=== PATIENT | male | born 1985 | race Two or more races ===

== ENCOUNTER 2025-07-17 12:46 | Inpatient (IN) | payer MEDICAID, OTHER ==
[~2025-07-17] VITALS: Ht 180.3 cm; Wt 95.3 kg
--- NOTE | 2025-07-17 15:40 | ED.PDOC ---
GI ASSESSMENT HPI Comments HPI: Holli 39 y.o male presents to the ED for an evaluation of jaundice to his skin and eyes that he noticed 4 days ago and is associated with dizziness, weakness and abdominal distention. Patient admits to heavy alcohol use for the past 7 days consisted of hard liquor, states he wants to quit and last drink was about one week ago. Patient denies any abdominal pain, fever, chills, nausea, vomiting or diarrhea. He mentions taking Ibuprofen given hx of back pain. Initial Vitals BP: 131/69 HR: 85 RR: 18 O2: 100% RA Temp: 98.7 F Past Medical History: HTN and chronic back pain Past Surgical History: Social History: Heavy ETOH use and tobacco use. Denies substance use. Allergies: Cephalexin HPI: Poor Historian. REVIEW OF SYSTEMS: CONSTITUTIONAL: Denies acute: fever, diaphoresis, chills, generalized weakness. HEAD: Denies acute: headache, photophobia Eyes: Denies acute: Double vision, vision loss, eye pain, eye discharge. EARS: Denies acute: tinnitus, hearing loss, ear discharge, ear pain, THROAT: Denies acute: sore throat, swelling, difficulty swallowing , pain with swallowing, change in voice. NECK: Denies acute: neck pain, neck swelling, stiff neck. HEART: Denies acute : chest pain, palpitations, LUNGS: Denies acute: SOB, wheezing, cough, hemoptysis ABDOMEN: Denies acute: Nausea, Vomiting, diarrhea, melena , hematemesis, hematochezia SKIN: Denies acute: rash, redness, lesions, itchiness. EXTREMITIES: Denies acute: calf pain, numbness, tingling, weakness, denies pain in extremity. Denies acute: Low back pain. Neuro: Denies acute: focal neurological deficit, motor or sensory focal neurological deficit, tremors, seizure like activity, confusion, dizziness, change in mental status, loss of bowel or bladder function, cauda equina like symptoms. : Denies acute: dysuria, hematuria, flank pain, increase in urinary frequency. PSYCH: Denies acute: hallucination, suicidal ideation, homicidal ideation. PHYSICAL EXAM: General: ----mi---acute distress, awake and alert. Head: normocephalic, atraumatic. Neck: supple, trachea is midline, no swelling. Throat: Normal phonation. Eyes:, no erythema, no purulent discharge, no proptosis, Heart: regular rate, regular rhythm, no significant murmur appreciated. Lungs: no apparent respiratory distress, Able to speak in full sentences. No wheezing, no rhonchi, no crackles. No stridors Clear to auscultation bilaterally. Abdomen: Mild right upper quadrant tender to palpation, non distended, soft, no guarding, no rebound, + bowel sounds. Neuro: Awake, Alert, oriented to name, self, situation, follows commands GCS=15. Speech is normal. Skin: no petechia, no purpura, no cyanosis, non-pale, not jaundice. Lower extremities: --no - Pitting edema no deformity, no focal swelling, no calf TTP. Makes eye contact. moves all four extremities. Face: no apparent facial droop. Ambulating in the ED independently. ED COURSE: DISCLAIMER: This medical document was created using an electronic medical record system with voice recognition software and computerized dictation system. Although this document has been carefully reviewed, there might still be some phonetic and typographical errors. Occasional wrong-word or "sound-alike" substitutions may have occurred due to the inherent limitations of voice recognition software. These areas are purely typographical due to imperfections of the software programs and do not reflect any compromise in the patient's medical care. Please read the chart carefully and recognize, using context, where these substitutions have occurred. Chief Complaint: Eye Problem Time Seen by MD: 15:30 Reviewed Notes: Allergies Allergies: Coded Allergies: Cephalexin (Verified Allergy, Unknown, 07/17/25) Home Meds Active Scripts Amlodipine Besylate (NORVASC TABLET) 5 Mg Tb, 5 MG PO DAILY for 30 Days, #30 TAB 3 Refills Prov:OCONNELLTRICIA Elizabeth DO 07/21/25 Metoprolol Tartrate (LOPRESSOR TABLET) 50 Mg Tb, 50 MG PO BID for 30 Days, #60 TAB 1 Refill Prov:TRICIA OCONNELL DO 07/21/25 Reported Medications Atorvastatin Calcium (ATORVASTATIN CALCIUM) 80 Mg Tab, 125 MG PO DAILY, TAB 07/19/25 Metoprolol Tartrate (Metoprolol Tartrate) 100 Mg Tab, 10 MG PO BID, TAB 07/19/25 Amlodipine Besylate-Valsartan (Amlodipine Besylate/Valsa 5-160 mg) 1 Tab Tab, 1 TAB PO DAILY for hypertension 07/18/25 Tramadol Hcl (Tramadol Hcl) 50 Mg Tab, 1 TAB PO Q8HPRN PRN for PAIN SCALE 1 THRU 6 07/18/25 Omeprazole (Omeprazole Dr) 20 Mg Cap, 1 CAP PO DAILY 07/18/25 Discontinued Reported Medications Atorvastatin Calcium (ATORVASTATIN CALCIUM) 10 Mg Tab, 1 TAB PO for for cholesterol 07/18/25 Information Source: Patient Mode of Arrival: Ambulatory Past Medical History PAST MEDICAL HISTORY: HTN Past Medical History (Other): chronic back pain Surgical History: Denies all surgeries Family History Family History: Reviewed,noncontributory to illness Social History Smoker: Cigarettes Alcohol: Heavy Lives In: Home Was a procedure done? Was a procedure done?: No GI differential Dx Differential Diagnosis: Bowel Obstruction, Cholangitis, Cholecystitis, Hepatitis, Inflammatory BD, Ischemic Bowel, Pancreatitis, Dehydration, Ischemic Bowel, Esophageal Varicies Other Differential Diagnosis Liver failure , hepatitis, liver cirrhosis, X-Ray, Labs, Meds, VS Vital Signs Date Time Temp Pulse Resp B/P (MAP) Pulse Ox O2 Delivery O2 Flow Rate FiO2 07/17/25 16:39 98.3 86 17 109/66 (80) 99 98.3 07/17/25 12:59 98.7 85 18 131/69 100 98.7 Lab Test 07/17/25 15:36 Range/Units White Blood Count 13.9 H 4.4-10.8 10^3/uL Red Blood Count 3.97 L 4.5-5.90 10^6/uL Hemoglobin 12.6 L 13.5-17.5 g/dL Hematocrit 37.1 L 41.0-53.0 % Mean Corpuscular Volume 93.4 80.0-100.0 fL Mean Corpuscular Hemoglobin 31.8 28.0-32.0 pg Mean Corpuscular Hemoglobin Concent 34.0 32.0-36.0 g/dL Red Cell Distribution Width 17.8 H 11.8-14.3 % Platelet Count 337 140-450 10^3/uL Mean Platelet Volume 7.9 6.9-10.8 fL Neutrophils (%) (Auto) 37.0-80.0 % Lymphocytes (%) (Auto) 10.0-50.0 % Monocytes (%) (Auto) 0.0-12.0 % Basophils (%) (Auto) 0.0-2.0 % Neutrophils # (Auto) 1.6-8.6 10 ^3/uL Lymphocytes # (Auto) 0.4-5.4 10 ^3/uL Monocytes # (Auto) 0-1.3 10 ^3/uL Differential Total Cells Counted 100.0 100 Neutrophils % (Manual) 64 37.0-80.0 Band Neutrophils % (Manual) 5 Lymphocytes % (Manual) 17 10.0-50.0 Monocytes % (Manual) 13 H 0-12 Eosinophils % (Manual) 1 0-7 Basophils % (Manual) 0 0.0-2.0 Metamyelocytes % (manual) 0 Myelocytes % (Manual) 0 Promyelocytes % (Manual) 0 Blast Cells % (Manual) 0 Reactive Lymphocytes 0 Platelet Estimate Adequate Anisocytosis (manual) Slight Target Cells Moderate Tear Drop Cells Stomatocytes Few Prothrombin Time 9.6 9.3-11.8 sec Prothrombin Time INR 0.90 0.9-1.15 Activated Partial Thromboplast Time 26.2 24.5-34.5 SEC Sodium Level 130 L 136-145 mmol/L Potassium Level 3.9 3.5-5.1 mmol/L Chloride Level 97 L 98-107 mmol/L Carbon Dioxide Level 18 L 20-31 mmol/L Anion Gap 15 5-15 Blood Urea Nitrogen 13 9-23 mg/dL Creatinine 1.68 H 0.700-1.30 mg/dL Glomerular Filtration Rate Calc 53 >90 mL/min BUN/Creatinine Ratio 7.7 L 10.0-20.0 Serum Glucose 113 H 74-106 mg/dL Lactic Acid Level 1.6 0.4-2.0 mmol/L Calcium Level 9.8 8.7-10.4 mg/dL Magnesium Level 2.3 1.6-2.6 mg/dL Total Bilirubin 14.5 H 0.2-1.0 mg/dL Aspartate Amino Transferase (AST) 119 H 13-40 U/L Alanine Aminotransferase (ALT) 86 H 7-40 U/L Alkaline Phosphatase 968 H 46-116 U/L Ammonia 55 H 11-32 umol/L Total Protein 7.1 5.7-8.2 g/dL Albumin 3.8 3.2-4.8 g/dL Thyroid Stimulating Hormone (TSH) 0.78 0.55-4.78 uIU/mL Hepatitis A IgM Antibody Negative Hepatitis B Surface Antigen Negative Negative Hepatitis B Core IgM Antibody Negative Negative Hepatitis C Antibody Negative Negative [facility] [id number] [place] [id number] Ph: [phone] DIAGNOSTIC IMAGING Diagnostic Imaging Report : [id number] Signed PATIENT: DRE HUTTON ACCT: [id number] UNIT: [id number] : 1985 LOC: ER ROOM / BED: / AGE / SEX: 39 / M ADM STATUS: REG ER SERVICE [id number] ORDERING PHYSICIAN: RONALDO SOLANO DO PROCEDURE(s): ABPL - CT AB PEL WO CON-NO ORAL OR IV REASON: JAUNDICE ORDER NUMBER(s): [id number], ACCESSION NUMBER(s): [id number] EXAM: CT CT AB PEL WO CON-NO ORAL OR IV INDICATION: JAUNDICE TECHNIQUE: Volumetric multidetector CT images of the abdomen and pelvis were obtained without contrast. All CT scans at this facility use dose modulation, iterative reconstruction, and/or weight based dosing when appropriate to reduce radiation dose to as low as reasonably achievable. COMPARISON: None FINDINGS: [LOWER CHEST]: The partially visualized lung bases are clear without a pleural effusion. The cardiac size is normal without pericardial effusion. [LIVER]: Normal hepatic size without suspicious focal lesion. [GALLBLADDER AND BILIARY TREE]: No cholelithiasis. [SPLEEN]: Unremarkable. [PANCREAS]: Unremarkable. [ADRENAL GLANDS]: Unremarkable [KIDNEYS]: No hydronephrosis. No nephroureterolithiasis. [BLADDER]: Unremarkable for the degree distention. [REPRODUCTIVE ORGANS]: Unremarkable. [BOWEL/MESENTERY]: Stomach is normal. No CT evidence of bowel obstruction. normal appendix. Inflammatory stranding of the along the proximal portion of the sigmoid colon which demonstrates herniation into the left inguinal canal with the associated sigmoid mesentery. No evidence of obstruction however correlate with clinical exam for incarceration. [ASCITES]: Absent [LYMPHADENOPATHY]: No pathologically enlarged lymph nodes by CT size criteria [VASCULATURE]: No aneurysmal dilatation. [ABDOMINAL WALL]: As detailed above, inflammatory stranding with the associated left inguinal sigmoid fat and bowel containing hernia without evidence of obstruction. Small fat containing right inguinal hernia. [MUSCULOSKELETAL]: Malunited left posterior 10th rib fracture. Nonunited left posterior 11th rib fracture. Multifocal degenerative change of the visualized spine. IMPRESSION: 1. Fat and sigmoid colonic containing left inguinal hernia with trace proximal inflammatory stranding. No evidence of obstruction however correlate with clinical exam for incarceration. 2. Small fat containing right inguinal hernia without surrounding inflammatory stranding. 3. Malunited left posterior 10th rib fracture. Nonunited left posterior 11th rib fracture. Time of 1ST Reevaluation: 15:34 Reevaluation 1ST: Unchanged Patient Education/Counseling: Diagnosis, Treatment, Prognosis Family Education/Counseling: No Family Present Comments MDM: patient presented with the above HPI.---jaundice---workup was initiated. patient was found with the above mentioned diagnosis. the following medications were ordered: please refer to order lists of meds and tests obtained by myself Dr. Solano. Patient ED course and VS have been stabilized. Patient has been reassessed in the ED and remained in a stable condition. Pertinent incidental findings were discussed with the patient and/or family. Patient/family voices understanding and is agreeable with plan. Patient has been observed in the ED adequate length of time to insure improvement/stability. Escalation of care considered: Consideration of escalation to observation or admission Patient was ADMITTED to the medicine team for further evaluation and treatment of their presentation. All the reports of any imaging studies that were ordered by myself were reviewed by myself. Departure 1 Departure Time of Disposition: 16:18 Impression: Primary Impression: Jaundice Additional Impressions: Alcohol abuse Hyperammonemia Hyperbilirubinemia Abdominal hernia Disposition: ADMITTED INPATIENT Admit to: Tele Condition: Guarded e-Prescriptions Amlodipine Besylate (NORVASC TABLET) 5 Mg Tb 5 MG PO DAILY for 30 Days, #30 TAB 3 Refills Prov: TRICIA OCONNELL DO 07/21/25 Metoprolol Tartrate (LOPRESSOR TABLET) 50 Mg Tb 50 MG PO BID for 30 Days, #60 TAB 1 Refill Prov: TRICIA OCONNELL DO 07/21/25 Discharged With: Self Critical Care Note Critical Care Time?: Yes (45 min-critical care time only) I personally scribed for RONALDO SOLANO DO ([email or web address]) on 07/17/25 at 15:40. Electronically submitted by Anabelle Saucedo ([facility]). I personally scribed for RONALDO SOLANO DO ([email or web address]) on 07/17/25 at 15:56. Electronically submitted by Sandy Corbin ([place]). RONALDO SOLANO DO Jul 17, 2025 15:40
[2025-07-17 15:47] LABS: Hematocrit 37.1 % (41.0-53.0); Hemoglobin 12.6 g/dL (13.5-17.5); Mean Corpuscular Hemoglobin 31.8 pg (28.0-32.0); Mean Corpuscular Volume 93.4 fL (80.0-100.0)
--- NOTE | 2025-07-17 15:48 | DVH ---
EXAM: CT CT AB PEL WO CON-NO ORAL OR IV INDICATION: JAUNDICE TECHNIQUE: Volumetric multidetector CT images of the abdomen and pelvis were obtained without contras t. All CT scans at this facility use dose modulation, iterative reconstruction, and/or weight based d osing when appropriate to reduce radiation dose to as low as reasonably achievable. COMPARISON: None FINDINGS: [LOWER CHEST]: The partially visualized lung bases are clear without a pleural effusion. The cardiac size is normal without pericardial effusion. [LIVER]: Normal hepatic size without suspicious focal lesion. [GALLBLADDER AND BILIARY TREE]: No cholelithiasis. [SPLEEN]: Unremarkable. [PANCREAS]: Unremarkable. [ADRENAL GLANDS]: Unremarkable [KIDNEYS]: No hydronephrosis. No nephroureterolithiasis. [BLADDER]: Unremarkable for the degree distention. [REPRODUCTIVE ORGANS]: Unremarkable. [BOWEL/MESENTERY]: Stomach is normal. No CT evidence of bowel obstruction. normal appendix. Inflammat ory stranding of the along the proximal portion of the sigmoid colon which demonstrates herniation in to the left inguinal canal with the associated sigmoid mesentery. No evidence of obstruction however correlate with clinical exam for incarceration. [ASCITES]: Absent [LYMPHADENOPATHY]: No pathologically enlarged lymph nodes by CT size criteria [VASCULATURE]: No aneurysmal dilatation. [ABDOMINAL WALL]: As detailed above, inflammatory stranding with the associated left inguinal sigmoid fat and bowel containing hernia without evidence of obstruction. Small fat containing right inguinal hernia. [MUSCULOSKELETAL]: Malunited left posterior 10th rib fracture. Nonunited left posterior 11th rib fra cture. Multifocal degenerative change of the visualized spine. IMPRESSION: 1. Fat and sigmoid colonic containing left inguinal hernia with trace proximal inflammatory stranding . No evidence of obstruction however correlate with clinical exam for incarceration. 2. Small fat containing right inguinal hernia without surrounding inflammatory stranding. 3. Malunited left posterior 10th rib fracture. Nonunited left posterior 11th rib fracture.
[2025-07-17 16:01] LABS: INR 0.9 (0.9-1.15); Partial Thromboplastin Time 26.2 SEC (24.5-34.5); Prothrombin Time 9.6 sec (9.3-11.8)
[2025-07-17 16:23] LABS: Albumin 3.8 g/dL (3.2-4.8); Anion Gap 15 (5-15); Blood Urea Nitrogen 13 mg/dL (9-23); Calcium 9.8 mg/dL (8.7-10.4); Magnesium 2.3 mg/dL (1.6-2.6); Potassium 3.9 mmol/L (3.5-5.1)
[2025-07-17 16:24] LABS: Alanine Aminotransferase 86 U/L (7-40); Alkaline Phosphatase 968 U/L (46-116); Bilirubin, Total 14.5 mg/dL (0.2-1.0); Carbon Dioxide 18 mmol/L (20-31); Chloride 97 mmol/L (98-107); Glucose 113 mg/dL (74-106); Sodium 130 mmol/L (136-145)
[2025-07-17 16:35] LABS: BUN/Creatinine Ratio 7.7 (10.0-20.0); Total Protein 7.1 g/dL (5.7-8.2)
[2025-07-17] MEDS: LACTULOSE 20Gm/30ML SOLN PO ONE (16:38)
[2025-07-17 18:42] LABS: Anisocytosis Slight; Total Cells Counted 100.0 (100)
[2025-07-17 18:43] LABS: Stomatocytes Few
[2025-07-17] MEDS ORDERED: ACETAMINOPHEN 325 MG TAB PO PRN (19:30)
[2025-07-17] MEDS ORDERED: NITROGLYCERIN 0.4 MG SL TAB SL PRN (19:30)
[2025-07-17] MEDS ORDERED: MORPHINE SULFATE INJ 2 MG/ml SYRG IV PRN ×2 (19:30)
--- NOTE | 2025-07-17 19:32 | DVHHPRES ---
History of Present Illness Resident Creating Document: CAIN NULL RESIDENT History of Present Illness 39 y.o male with a history of hypertension and hypercholesterolemia presenting with yellow eyes, weakness, fatigue, swelling, and abdominal soreness. His girlfriend noticed his eyes turning yellow 4 days ago. He has been experiencing weakness, fatigue, swelling, and soreness for 5 days with pain when pressure is applied to the affected area. In addition to his primary symptoms, Jermaine reports feeling dizzy and itchy. He denies any issues with bowel movements, nausea, or vomiting. He mentions having a large inguinal hernia on the left side. His last alcohol consumption was 7 to 10 days ago, with a history of drinking about one drink per day. He smokes occasionally, approximately 7 to 10 cigarettes daily. He denies using any other drugs and reports no known liver issues. 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 Current smoker, 7-10 cigarettes per day. Denies other drug use. - Living Situation: Lives with family Review of Systems Review of Systems Review of Systems General: Positive for weakness, fatigue, and swelling. Skin: Positive for itching. HEENT: Positive for yellow eyes. Gastrointestinal: Negative for bowel movement issues, nausea, or vomiting. Neurological: Positive for dizziness. Musculoskeletal: Positive for soreness in unspecified area. Allergies: Coded Allergies: Cephalexin (Verified Allergy, Unknown, 07/17/25) Medications Current Medications Medications Dose Ordered Sig/Martha Route Start Time Stop Time Status Last Admin Dose Admin Sodium Chloride 1,000 ml @ 60 mls/hr [id number] IV 07/17/25 19:30 UNV Acetaminophen/ Hydrocodone Bitart 1 tab Q4HP PRN PO 07/17/25 19:30 UNV Ondansetron HCl 4 mg Q4HP PRN IV 07/17/25 19:30 UNV Acetaminophen 650 mg Q6HP PRN PO 07/17/25 19:30 UNV Morphine Sulfate 2 mg Q4HPRN PRN IV 07/17/25 19:30 UNV Nitroglycerin 0.4 mg Q5MINP PRN SL 07/17/25 19:30 UNV Morphine Sulfate 2 mg Q30M PRN IV 07/17/25 19:30 UNV Ceftriaxone Sodium 50 ml @ 100 mls/hr DAILY IV 07/18/25 10:00 UNV Lactulose 30 ml DAILY PO 07/18/25 10:00 UNV Exam Vital Signs Vital Signs Date Time Temp Pulse Resp B/P (MAP) Pulse Ox O2 Delivery O2 Flow Rate FiO2 07/17/25 16:39 98.3 86 17 109/66 (80) 99 98.3 Exam GENERAL: Not in acute distress. HEENT: Positive forscleral icterus, EOMI, Moist mucous membranes . No cervical lymphadenopathy. LUNGS: Clear to auscultation bilaterally. No accessory muscle use. CARDIOVASCULAR: Regular rate and rhythm. No murmur. No JVD. ABDOMEN: Mild tender EXTREMITIES: No edema. Nontender. SKIN: No rashes or lesions. Warm. NEUROLOGIC: Alert and oriented X3 Labs/Xrays Labs Test 07/17/25 15:36 Range/Units White Blood Count 13.9 H 4.4-10.8 10^3/uL Red Blood Count 3.97 L 4.5-5.90 10^6/uL Hemoglobin 12.6 L 13.5-17.5 g/dL Hematocrit 37.1 L 41.0-53.0 % Mean Corpuscular Volume 93.4 80.0-100.0 fL Mean Corpuscular Hemoglobin 31.8 28.0-32.0 pg Mean Corpuscular Hemoglobin Concent 34.0 32.0-36.0 g/dL Red Cell Distribution Width 17.8 H 11.8-14.3 % Platelet Count 337 140-450 10^3/uL Mean Platelet Volume 7.9 6.9-10.8 fL Neutrophils (%) (Auto) 37.0-80.0 % Lymphocytes (%) (Auto) 10.0-50.0 % Monocytes (%) (Auto) 0.0-12.0 % Basophils (%) (Auto) 0.0-2.0 % Neutrophils # (Auto) 1.6-8.6 10 ^3/uL Lymphocytes # (Auto) 0.4-5.4 10 ^3/uL Monocytes # (Auto) 0-1.3 10 ^3/uL Differential Total Cells Counted 100.0 100 Neutrophils % (Manual) 64 37.0-80.0 Band Neutrophils % (Manual) 5 Lymphocytes % (Manual) 17 10.0-50.0 Monocytes % (Manual) 13 H 0-12 Eosinophils % (Manual) 1 0-7 Basophils % (Manual) 0 0.0-2.0 Metamyelocytes % (manual) 0 Myelocytes % (Manual) 0 Promyelocytes % (Manual) 0 Blast Cells % (Manual) 0 Reactive Lymphocytes 0 Platelet Estimate Adequate Anisocytosis (manual) Slight Target Cells Moderate Tear Drop Cells Stomatocytes Few Prothrombin Time 9.6 9.3-11.8 sec Prothrombin Time INR 0.90 0.9-1.15 Activated Partial Thromboplast Time 26.2 24.5-34.5 SEC Sodium Level 130 L 136-145 mmol/L Potassium Level 3.9 3.5-5.1 mmol/L Chloride Level 97 L 98-107 mmol/L Carbon Dioxide Level 18 L 20-31 mmol/L Anion Gap 15 5-15 Blood Urea Nitrogen 13 9-23 mg/dL Creatinine 1.68 H 0.700-1.30 mg/dL Glomerular Filtration Rate Calc 53 >90 mL/min BUN/Creatinine Ratio 7.7 L 10.0-20.0 Serum Glucose 113 H 74-106 mg/dL Lactic Acid Level 1.6 0.4-2.0 mmol/L Calcium Level 9.8 8.7-10.4 mg/dL Magnesium Level 2.3 1.6-2.6 mg/dL Total Bilirubin 14.5 H 0.2-1.0 mg/dL Aspartate Amino Transferase (AST) 119 H 13-40 U/L Alanine Aminotransferase (ALT) 86 H 7-40 U/L Alkaline Phosphatase 968 H 46-116 U/L Ammonia 55 H 11-32 umol/L Total Protein 7.1 5.7-8.2 g/dL Albumin 3.8 3.2-4.8 g/dL SEPSIS Sepsis Screen Date sepsis recognized/suspect: Jul 17, 2025 Time Sepsis recognized/suspect: 1301 Recent Procedure: No On Antibiotic Therapy: No Respiratory Rate >20: No Heart Rate >90: No Temp<36 C (96.8 F) or >38.3 C: No SBP <90 or MAP <65 mmHG: No New Acute Mental Status Change: No Is the patient on CPAP, BIPAP,: No Physician Orders Authorization Rep (07/17/25 ) Urinalysis (07/17/25 15:04) Ct Ab Pel Wo Con-No Oral Or Iv (07/17/25 15:05) Admit (07/17/25 19:22) Code Status (07/17/25 19:22) Sodium Chloride 0.9% (07/17/25 19:30) Hydrocodone-Acet 5/325mg Tab ([place] 5/32 (07/17/25 19:30) Ondansetron Hcl (Zofran) (07/17/25 19:30) Complete Blood Count (07/18/25 04:00) Comprehensive Metabolic Panel (07/18/25 04:00) Acetaminophen Tablet (Tylenol Tablet) (07/17/25 19:30) Clear Liq Diet (07/18/25 Breakfast) Morphine Sulfate Injection (07/17/25 19:30) Nitroglycerin Sublingual (Ntrostat Subli (07/17/25 19:30) Morphine Sulfate Injection (07/17/25 19:30) Oxygen By Nasal Cannula (07/17/25:22) Stat Ekg For Chest Pain (07/17/25 19:22) Notify Md Of Changes From Base (07/17/25 19:22) Emergency Dysrhythmia Protocol (07/17/25:) Lipase (07/18/25 04:00) Drug Screen (07/17/25 19:22) Urinalysis (07/17/25 19:22) Thyroid Stimulating Hormone (07/17/25:22) Ammonia (07/18/25 04:00) Ceftriaxone 1gm/50ml (Rocephin) (07/18/25 10:00) Lactulose Oral (07/18/25 10:00) Vital Signs Date Time Temp Pulse Resp B/P (MAP) Pulse Ox O2 Delivery O2 Flow Rate FiO2 07/17/25 16:39 98.3 86 17 109/66 (80) 99 98.3 07/17/25 12:59 98.7 85 18 131/69 100 98.7 Laboratory Tests Test 07/17/25 15:36 Lactic Acid Level 1.6 mmol/L (0.4-2.0) White Blood Count 13.9 10^3/uL (4.4-10.8) H Medications Medications Dose Ordered Sig/Martha Route Start Time Stop Time Status Last Admin Dose Admin Lactulose 60 ml ONCE ONCE PO 07/17/25 16:15 07/17/25 16:18 DC 07/17/25 16:38 60 ML Assessment/Plan Assessment/Plan # Acute jaundice with abdominal symptoms # possible alcoholic liver disease # transaminitis # rule out hepatitis # hyperbilirubinemia - Bilirubin level 14.5 - Order comprehensive metabolic panel, including liver function tests - Order abdominal ultrasound to evaluate liver and biliary system - Advise complete alcohol cessation - Recommend smoking cessation - Schedule follow-up appointment to review test results and determine further management # NICOLASA likely due to VMN - IV fluid - monitor kidney function - monitor BMP - avoid nephrotoxic agents # hyponatremia - sodium level is 130 - follow up BMP # Hypertension - Continue current antihypertensive medication - Advise patient to bring medication to next appointment for review - Monitor blood pressure at follow-up visits # Hypercholesterolemia - Order lipid panel - Review current cholesterol-lowering medication regimen at follow-up # Left-sided inguinal hernia without obstruction - Consider referral to general surgery for evaluation and potential repair # Back growth likely lipoma - Follow up on general surgery # Alcohol use disorder - patient is to drink alcohol every day - counseled to quit alcohol drinking # current smoker - patient smokes 7-10 cigarettes per day - counseled to quit smoking for more than 15 minutes Goal of care discussed with patient for 38 minutes: Full code Plan discussed with Dr. Monge Plan discussed with: Patient, Other (Farther) My Orders Orders - CAIN NULL RESIDENT Procedure Category Date Status Time Admit ADMIT 07/17/25 Transmitted 19:22 Code Status CODE 07/17/25 Transmitted 19:22 Sodium Chloride 0.9% PHA 07/17/25 Logged 19:30 Hydrocodone-Acet PHA 07/17/25 Logged 5/325mg Tab ([place] 19:30 Ondansetron Hcl PHA 07/17/25 Logged (Zofran) 19:30 Complete Blood Count LAB 07/18/25 Verified 04:00 Comprehensive LAB 07/18/25 Verified Metabolic Panel 04:00 Acetaminophen Tablet PHA 07/17/25 Logged (Tylenol Tablet) 19:30 Clear Liq Diet DIET 07/18/25 Transmitted Breakfast Morphine Sulfate PHA 07/17/25 Logged Injection 19:30 Nitroglycerin PHA 07/17/25 Logged Sublingual (Ntrostat 19:30 Morphine Sulfate PHA 07/17/25 Logged Injection 19:30 Oxygen By Nasal RT 07/17/25 Transmitted Cannula 19:22 Stat Ekg For Chest SHILPA 07/17/25 In Process Pain 19:22 Notify Md Of Changes SHILPA 07/17/25 In Process From Base 19:22 Emergency Dysrhythmia SHILPA 07/17/25 In Process Protocol 19:22 Lipase LAB 07/18/25 Verified 04:00 Drug Screen LAB 07/17/25 Logged 19:22 Urinalysis LAB 07/17/25 Logged 19:22 Thyroid Stimulating LAB 07/17/25 Logged Hormone 19:22 Ammonia LAB 07/18/25 Verified 04:00 Ceftriaxone 1gm/50ml PHA 07/18/25 Logged (Rocephin) 10:00 Lactulose Oral PHA 07/18/25 Logged 10:00 Date of Service: Jul 17, 2025 ([facility] ) Billing Provider: HOLLEY MONGE MD Common Visit Codes: [id number] INP/OBS CARE (HIGH) Secondary Visit Codes: [id number] CARE PLAN 30 MINUTES CAIN NULL RESIDENT Jul 17, 2025 19:32 HOLLEY MONGE MD Jul 18, 2025 13:10
[2025-07-17] MEDS: SODIUM CHLORIDE 0.9% 1,000 ML IV SCH (20:30)
[2025-07-17 21:02] VITALS: BP 108/78; PULSE 84; O2SAT 97
[2025-07-18] VITALS (7 sets, daily range): BP systolic 125–144; BP diastolic 78–91; PULSE 85–98; RESP 15–18; TEMP 97.3–99.4; O2SAT 98–100
[2025-07-18] MEDS: HYDROcodone-ACET 5/325MG TAB PO PRN (00:18)
[2025-07-18] MEDS ORDERED: OMEP1CAP70 PO (00:32)
[2025-07-18] MEDS ORDERED: TRAM50TA2 PO (00:32)
[2025-07-18] MEDS ORDERED: ATOR10TA52 PO (01:01)
[2025-07-18] MEDS ORDERED: AMLO-297 PO (01:01)
[2025-07-18 06:31] LABS: Hematocrit 33.5 % (41.0-53.0); Hemoglobin 11.3 g/dL (13.5-17.5); Mean Corpuscular Hemoglobin 31.9 pg (28.0-32.0); Mean Corpuscular Volume 94.5 fL (80.0-100.0)
[2025-07-18 06:42] LABS: Anion Gap 12 (5-15); Blood Urea Nitrogen 15 mg/dL (9-23); Calcium 9.0 mg/dL (8.7-10.4); Chloride 100 mmol/L (98-107); Glucose 94 mg/dL (74-106); Lipase 52 U/L (12-53); Potassium 3.8 mmol/L (3.5-5.1)
[2025-07-18 07:16] LABS: BUN/Creatinine Ratio 7.6 (10.0-20.0)
[2025-07-18 07:17] LABS: Alanine Aminotransferase 74 U/L (7-40); Albumin 3.2 g/dL (3.2-4.8); Alkaline Phosphatase 746 U/L (46-116); Bilirubin, Total 11.7 mg/dL (0.2-1.0); Carbon Dioxide 18 mmol/L (20-31); Sodium 130 mmol/L (136-145); Total Protein 6.0 g/dL (5.7-8.2)
[2025-07-18 08:06] LABS: Anisocytosis Slight; Stomatocytes Few; Total Cells Counted 100.0 (100)
[2025-07-18] MEDS: LACTULOSE 20Gm/30ML SOLN PO SCH (10:16)
--- NOTE | 2025-07-18 14:45 | DVHPN2 ---
Subjective The patient seen and examined at bedside. Still complain of tired and jaundice. Reviewed: Care Plan, H&P, Labs, Medications, Previous Orders Changes from previous H/P or p: No Changes Objective Vitals Vital Signs Date Time Temp Pulse Resp B/P (MAP) Pulse Ox O2 Delivery O2 Flow Rate FiO2 07/18/25 12:47 99.4 95 16 125/78 (94) 98 99.4 07/18/25 00:21 Room Air* 0 21 Intake/Output Intake and Output 07/18/25 07:00 Intake Total 240 ml Balance 240 ml Intake Oral 240 ml # Voids 2 # Bowel Movements 1 General Appearance: Alert, Oriented X3, Cooperative, No acute distress HEENT: Atraumatic, PERRLA, EOMI, Mucous membr. moist/pink, Other (Positive for scale icterus) Neck: Supple Lungs: Clear to auscultation, Normal air movement Cardiovascular: Regular rate, Normal S1, Normal S2, No murmurs, Gallops, Rubs Abdomen: Normal bowel sounds, Soft, No tenderness Neuro: Cranial nerves 3-12 NL Psych/Mental Status: Mental status NL Medications Current Medications Medications Dose Ordered Sig/Martha Route Start Time Stop Time Status Last Admin Dose Admin Sodium Chloride 1,000 ml @ 60 mls/hr [id number] IV 07/17/25 19:30 07/18/25 10:24 60 MLS/HR Acetaminophen/ Hydrocodone Bitart 1 tab Q4HP PRN PO 07/17/25 19:30 07/18/25 10:16 1 TAB Ondansetron HCl 4 mg Q4HP PRN IV 07/17/25 19:30 Acetaminophen 650 mg Q6HP PRN PO 07/17/25 19:30 Morphine Sulfate 2 mg Q4HPRN PRN IV 07/17/25 19:30 Nitroglycerin 0.4 mg Q5MINP PRN SL 07/17/25 19:30 Morphine Sulfate 2 mg Q30M PRN IV 07/17/25 19:30 Ceftriaxone Sodium 50 ml @ 100 mls/hr DAILY IV 07/18/25 10:00 07/18/25 10:16 100 MLS/HR Lactulose 30 ml DAILY PO 07/18/25 10:00 07/18/25 10:16 30 ML Laboratory Results Laboratory Tests 07/18/25 05:31 Chemistry Test 07/17/25 15:36 07/18/25 05:31 Albumin 3.8 g/dL (3.2-4.8) 3.2 g/dL (3.2-4.8) Calcium Level 9.8 mg/dL (8.7-10.4) 9.0 mg/dL (8.7-10.4) Magnesium Level 2.3 mg/dL (1.6-2.6) Total Protein 7.1 g/dL (5.7-8.2) 6.0 g/dL (5.7-8.2) Coagulation Test 07/17/25 15:36 Prothrombin Time 9.6 sec (9.3-11.8) Prothrombin Time INR 0.90 (0.9-1.15) Activated Partial Thromboplast Time 26.2 SEC (24.5-34.5) Lipid panel Test 07/18/25 05:31 Lipase 52 U/L (12-53) LFT Test 07/17/25 15:36 07/18/25 05:31 Alanine Aminotransferase (ALT) 86 U/L (7-40) H 74 U/L (7-40) H Alkaline Phosphatase 968 U/L (46-116) H 746 U/L (46-116) H Aspartate Amino Transferase (AST) 119 U/L (13-40) H 99 U/L (13-40) H Total Bilirubin 14.5 mg/dL (0.2-1.0) H 11.7 mg/dL (0.2-1.0) H HgA1c, TSH Test 07/17/25 15:36 Thyroid Stimulating Hormone (TSH) 0.78 uIU/mL (0.55-4.78) Labs and/or images reviewed: Labs reviewed by me Assessment/Plan Assessment/Plan Assessment/Plan # Acute jaundice with abdominal symptoms # possible alcoholic liver disease # transaminitis # rule out hepatitis # hyperbilirubinemia - Bilirubin level 14.5 - Order comprehensive metabolic panel, including liver function tests - Order abdominal ultrasound to evaluate liver and biliary system - Advise complete alcohol cessation - Recommend smoking cessation - Schedule follow-up appointment to review test results and determine further management # NICOLASA likely due to VMN - IV fluid - monitor kidney function - monitor BMP - avoid nephrotoxic agents # hyponatremia - sodium level is 130 - follow up BMP # Hypertension - Continue current antihypertensive medication - Advise patient to bring medication to next appointment for review - Monitor blood pressure at follow-up visits # Hypercholesterolemia - Order lipid panel - Review current cholesterol-lowering medication regimen at follow-up # Left-sided inguinal hernia without obstruction - Consider referral to general surgery for evaluation and potential repair # Back growth likely lipoma - Follow up on general surgery # Alcohol use disorder - patient is to drink alcohol every day - counseled to quit alcohol drinking # current smoker - patient smokes 7-10 cigarettes per day - counseled to quit smoking for more than 15 minutes Continuing current management This medical document was created using an electronic medical record system with [employer] computerized dictation system. Although this document has been carefully reviewed, there may still be some phonetic and typographical errors. These areas are purely typographical due to imperfections of the software programs, and do not reflect any compromise in the patient's medical care. Plan discussed with: Patient Date of Service: Jul 18, 2025 Billing Provider: JOAQUIN PEREZ MD Common Visit Codes: [id number] INP/OBS CARE(HIGH) JOAQUIN PEREZ MD Jul 18, 2025 14:45
[2025-07-18] MEDS: TEMAZEPAM 15 MG CAP PO PRN (23:27)
[2025-07-19] VITALS (8 sets, daily range): BP systolic 119–162; BP diastolic 81–114; PULSE 77–99; RESP 16–19; TEMP 97.8–98.9; O2SAT 97–100
[2025-07-19] MEDS ORDERED: METO-159 PO (08:07)
[2025-07-19] MEDS ORDERED: ATOR-47 PO (08:11)
[2025-07-19] MEDS: METOPROLOL TARTRATE 50 MG TAB PO SCH (08:54)
[2025-07-19 10:34] LABS: Hepatitis B Surface Antigen Negative (Negative)
[2025-07-19 10:36] LABS: Hepatitis C Antibody Negative (Negative)
--- NOTE | 2025-07-19 11:46 | DVHPN2 ---
Subjective The patient seen and examined at bedside. Still complain of tired and jaundice. Reviewed: Care Plan, H&P, Labs, Medications, Previous Orders Changes from previous H/P or p: No Changes Objective Vitals Vital Signs Date Time Temp Pulse Resp B/P (MAP) Pulse Ox O2 Delivery O2 Flow Rate FiO2 07/19/25 10:17 82 141/94 07/19/25 09:00 98.1 19 98 98.1 07/19/25 07:50 Room Air* 0 21 Intake/Output Intake and Output 07/19/25 07:00 Intake Total 1670 ml Balance 1670 ml Intake Oral 1620 ml IV Total 50 ml # Voids 5 # Bowel Movements 1 General Appearance: Alert, Oriented X3, Cooperative, No acute distress HEENT: Atraumatic, PERRLA, EOMI, Mucous membr. moist/pink, Other (Positive for scale icterus) Neck: Supple Lungs: Clear to auscultation, Normal air movement Cardiovascular: Regular rate, Normal S1, Normal S2, No murmurs, Gallops, Rubs Abdomen: Normal bowel sounds, Soft, No tenderness Neuro: Cranial nerves 3-12 NL Psych/Mental Status: Mental status NL Medications Current Medications Medications Dose Ordered Sig/Martha Route Start Time Stop Time Status Last Admin Dose Admin Sodium Chloride 1,000 ml @ 60 mls/hr [id number] IV 07/17/25 19:30 07/19/25 10:18 60 MLS/HR Acetaminophen/ Hydrocodone Bitart 1 tab Q4HP PRN PO 07/17/25 19:30 07/19/25 08:54 1 TAB Ondansetron HCl 4 mg Q4HP PRN IV 07/17/25 19:30 Acetaminophen 650 mg Q6HP PRN PO 07/17/25 19:30 Morphine Sulfate 2 mg Q4HPRN PRN IV 07/17/25 19:30 Nitroglycerin 0.4 mg Q5MINP PRN SL 07/17/25 19:30 Morphine Sulfate 2 mg Q30M PRN IV 07/17/25 19:30 Ceftriaxone Sodium 50 ml @ 100 mls/hr DAILY IV 07/18/25 10:00 07/19/25 08:53 100 MLS/HR Lactulose 30 ml DAILY PO 07/18/25 10:00 07/19/25 08:54 30 ML Temazepam 15 mg HSPRN PRN PO 07/18/25 18:30 07/18/25 23:27 15 MG Metoprolol Tartrate 50 mg BID PO 07/19/25 10:00 07/19/25 08:54 50 MG Laboratory Results Laboratory Tests 07/18/25 05:31 Labs and/or images reviewed: Labs reviewed by me Assessment/Plan Assessment/Plan Assessment/Plan # Acute jaundice with abdominal symptoms # possible alcoholic liver disease # transaminitis # rule out hepatitis # hyperbilirubinemia - Bilirubin level 14.5 - Order comprehensive metabolic panel, including liver function tests - Order abdominal ultrasound to evaluate liver and biliary system - Advise complete alcohol cessation - Recommend smoking cessation - Schedule follow-up appointment to review test results and determine further management # NICOLASA likely due to VMN - IV fluid - monitor kidney function - monitor BMP - avoid nephrotoxic agents # hyponatremia - sodium level is 130 - follow up BMP # Hypertension - Continue current antihypertensive medication - Advise patient to bring medication to next appointment for review - Monitor blood pressure at follow-up visits # Hypercholesterolemia - Order lipid panel - Review current cholesterol-lowering medication regimen at follow-up # Left-sided inguinal hernia without obstruction - Consider referral to general surgery for evaluation and potential repair # Back growth likely lipoma - Follow up on general surgery # Alcohol use disorder - patient is to drink alcohol every day - counseled to quit alcohol drinking # current smoker - patient smokes 7-10 cigarettes per day - counseled to quit smoking for more than 15 minutes Continuing current management. Waiting for GI specialist to see patient. MRCP if OK with GI. This medical document was created using an electronic medical record system with [employer] computerized dictation system. Although this document has been carefully reviewed, there may still be some phonetic and typographical errors. These areas are purely typographical due to imperfections of the software programs, and do not reflect any compromise in the patient's medical care. Plan discussed with: Patient My Orders Orders - JOAQUIN PEREZ MD Procedure Category Date Status Time Temazepam (Restoril) PHA 07/18/25 In Process 18:30 Metoprolol Tartrate PHA 07/19/25 In Process Tablet (Lopressor Ta 10:00 * Gi D[facility] Range Aid CONS 07/19/25 Verified 11:45 Date of Service: Jul 19, 2025 Billing Provider: JOAQUIN PEREZ MD Common Visit Codes: [id number] INP/OBS CARE(HIGH) JOAQUIN PEREZ MD Jul 19, 2025 11:46
[2025-07-19 13:56] LABS: Urine Protein, UAD Negative (Negative)
[2025-07-19 14:09] LABS: Opiate Scree,Urine Pos (NEGATIVE)
[2025-07-19 14:10] LABS: Amphetamine Screen, Urine Neg (NEGATIVE); Barbiturate Scree,Urine Neg (NEGATIVE); Benzodiazephine Screen, Urine Neg (NEGATIVE); Cannabinoid Screen, Urine Neg (NEGATIVE); Cocaine Screen, Urine Neg (NEGATIVE); Phencyclidine Screen, Urine Neg (NEGATIVE)
--- NOTE | 2025-07-19 14:37 | DVH ---
[Procedures] HISTORY: ACUTE LIVER FAILURE COMPARISON: None PROCEDURE: Multiplanar multisequence MRI images were obtained of the abdomen without intravenous cont rast Additional MIPS were obtained of the biliary system. FINDINGS: Bile ducts: Intrahepatic ducts: Non-dilated. Extrahepatic ducts: Non-dilated. Common bile duct: Punctate filling defect versus artifact measuring 0.4 cm. Filling defects: Present. Stricture: None. Gallbladder: No gallstones. Pancreas: Pancreatic duct: No ductal dilatation. Lesions: None. Liver: Signal intensity: Homogenous. Contour: Smooth. Size: Hepatomegaly, 20.4 cm craniocaudal. Lesions: No focal liver lesion. ADDITIONAL Lung base: Normal. Spleen: Normal. Bowel: Normal. Adrenal glands: Normal. Kidneys and ureters: Normal. Lymph nodes: Normal. Peritoneum: Normal. Vessels: Normal. Abdominal wall: Normal. Bone: No aggressive bone lesions. IMPRESSION: Punctate filling defect versus artifact measuring 0.4 cm in the common bile duct. No cholelithiasis. Hepatomegaly.
[2025-07-19 15:39] LABS: Hematocrit 33.4 % (41.0-53.0); Hemoglobin 11.4 g/dL (13.5-17.5); Mean Corpuscular Hemoglobin 32.4 pg (28.0-32.0); Mean Corpuscular Volume 94.5 fL (80.0-100.0)
[2025-07-19 15:53] LABS: INR 0.91 (0.9-1.15); Prothrombin Time 9.7 sec (9.3-11.8)
[2025-07-19 15:59] LABS: Alanine Aminotransferase 73 U/L (7-40); Albumin 3.5 g/dL (3.2-4.8); Alkaline Phosphatase 658 U/L (46-116); Anion Gap 10 (5-15); BUN/Creatinine Ratio 8.8 (10.0-20.0); Bilirubin, Total 11.2 mg/dL (0.2-1.0); Blood Urea Nitrogen 9 mg/dL (9-23); Calcium 9.5 mg/dL (8.7-10.4); Carbon Dioxide 24 mmol/L (20-31); Chloride 99 mmol/L (98-107); Glucose 95 mg/dL (74-106); Potassium 4.0 mmol/L (3.5-5.1); Sodium 133 mmol/L (136-145); Total Protein 6.4 g/dL (5.7-8.2)
--- NOTE | 2025-07-19 16:04 | DVHCONRES ---
Date Seen: Jul 19, 2025 Resident Creating Document: NICHOLAS WEBBER RESIDENT Referring Physician Dr. Rahman Reason for Consultation Acute liver failure/jaundice History of Present Illness Patient is a 39-year-old male with past medical history of hypertension, inguinal hernia, who comes in due to jaundice. According to the patient, his noticed increasing yellowing of his eyes which 1st started 9 days ago which is what prompted this visit to the hospital. Patient denies having similar symptoms in the past. Denies any associated symptoms. Review of systems all negative. Patient notes he had last alcoholic drink 10 days ago. Past Medical History hypertension, inguinal hernia Past Surgical History Umbilical hernia repair surgery Family History: Arthritis G8 FATHER Cardiovascular disease G8 FATHER Diabetes mellitus G8 FATHER Social History Smoking: Previously used to smoke half a pack per day for 10 years, 3 cigarettes per day for the last 4 years Alcohol: Quit 10 days ago, prior to that 1 pt of hard liquor every day, daily for the last 4-5 years (since 2021) Drugs: Denies Allergies: Coded Allergies: Cephalexin (Verified Allergy, Unknown, 07/17/25) Home Meds Reported Medications Atorvastatin Calcium (ATORVASTATIN CALCIUM) 80 Mg Tab, 125 MG PO DAILY, TAB 07/19/25 Metoprolol Tartrate (Metoprolol Tartrate) 100 Mg Tab, 10 MG PO BID, TAB 07/19/25 Amlodipine Besylate-Valsartan (Amlodipine Besylate/Valsa 5-160 mg) 1 Tab Tab, 1 TAB PO DAILY for hypertension 07/18/25 Tramadol Hcl (Tramadol Hcl) 50 Mg Tab, 1 TAB PO Q8HPRN PRN for PAIN SCALE 1 THRU 6 07/18/25 Omeprazole (Omeprazole Dr) 20 Mg Cap, 1 CAP PO DAILY 07/18/25 Discontinued Reported Medications Atorvastatin Calcium (ATORVASTATIN CALCIUM) 10 Mg Tab, 1 TAB PO for for cholesterol 07/18/25 Current Medications Current Medications Medications (Trade) Dose Ordered Sig/Martha Route PRN Reason Start Time Stop Time Status Last Admin Temazepam (Restoril) 15 mg HSPRN PRN PO FOR INSOMNIA 07/18/25 18:30 07/18/25 23:27 Metoprolol Tartrate (Lopressor Tablet) 50 mg BID PO 07/19/25 10:00 07/19/25 08:54 Amlodipine Besylate (Norvasc Tablet) 5 mg DAILY PO 07/20/25 10:00 Review of Systems Patient seen and examined at bedside. Patient is alert and oriented to time, place person and responding to all questions. Eyes: No Pain, No Vision change, No Conjunctivae inflammation, No Eyelid inflammation, No Other, No Redness ENT: No Ear pain, No Ear discharge, No Nose pain, No Nose discharge, No Nose congestion, No Mouth pain, No Mouth swelling, No Throat pain, No Throat swellin g, No Other Cardiovascular: No Chest Pain, No Palpitations, No Orthopnea, No Paroxysmal No Dyspnea, No Edema, No Lt Headedness, No Other Respiratory: No Cough, No Dry, No Shortness of breath, No SOB with exertion, No Wheezing, No Hemoptysis, No Pleuritic Pain, No Sputum, No Other Gastrointestinal: No Nausea, No Vomiting, No Abdominal Pain, No Diarrhea, No Constipation, No Melena, No Hematochezia, No Other Genitourinary: No Dysuria, No Frequency, No Incontinence, No Hematuria, No Retention, No Other Musculoskeletal: No other, No neck pain, No shoulder pain, No arm pain, No back pain, No hand pain, No leg pain, No foot pain Skin: No Rash, No Lesions, No Jaundice, No Bruising, No Other Vital Signs Vital Signs Date Time Temp Pulse Resp B/P (MAP) Pulse Ox O2 Delivery O2 Flow Rate FiO2 07/19/25 14:31 155/101 07/19/25 10:17 82 07/19/25 09:00 98.1 19 98 98.1 07/19/25 07:50 Room Air* 0 21 Physical Exam General Appearance: Jaundiced Well developed. Well nourished. NAD Pulmonary/Respiratory: Equal bilateral air entry Cardiovascular/Chest: Regular rate and rhythm. No murmurs. No JVD. Abdominal Exam: Normal bowel sounds. Soft but distended. normal abdomen, no visible veins, Nontender. No hepatospenomegaly. No masses Ankle Exam: Negative ankle edema Neuro/Mental Status: A&O x4. Coherent. Thoughts/Psych: Normal thought pattern. Appropriate mood and affect. Good judgement and insight Skin Exam: Normal inspection. Normal color. Warm. Dry Labs/Diagnostic Data Labs Test 07/19/25 15:30 07/19/25 11:00 07/18/25 11:18 07/18/25 05:31 Range/Units White Blood Count 12.3 H 4.4-10.8 10^3/uL Red Blood Count 3.53 L 4.5-5.90 10^6/uL Hemoglobin 11.4 L 13.5-17.5 g/dL Hematocrit 33.4 L 41.0-53.0 % Mean Corpuscular Volume 94.5 80.0-100.0 fL Mean Corpuscular Hemoglobin 32.4 H 28.0-32.0 pg Mean Corpuscular Hemoglobin Concent 34.3 32.0-36.0 g/dL Red Cell Distribution Width 18.2 H 11.8-14.3 % Platelet Count 323 140-450 10^3/uL Mean Platelet Volume 8.0 6.9-10.8 fL Neutrophils (%) (Auto) 37.0-80.0 % Lymphocytes (%) (Auto) 10.0-50.0 % Monocytes (%) (Auto) 0.0-12.0 % Basophils (%) (Auto) 0.0-2.0 % Neutrophils # (Auto) 1.6-8.6 10 ^3/uL Lymphocytes # (Auto) 0.4-5.4 10 ^3/uL Monocytes # (Auto) 0-1.3 10 ^3/uL Urine Color Dark-yellow Yellow Urine Clarity Clear Clear Urine pH 5.5 5.0-9.0 Urine Specific [place] 1.014 1.001-1.035 Urine Protein Negative Negative Urine Ketones Negative Negative Urine Blood Negative Negative /uL Urine Nitrite Negative Negative Urine Bilirubin 2+ Negative Urine Urobilinogen Normal Negative mg/dL Urine Leukocyte Esterase Negative Negative /uL Urine RBC 1 0 - 3 /hpf Urine Microscopic WBC 3 0-3 /HPF Urine Squamous Epithelial Cells Few <5 /hpf Urine Bacteria None seen None Seen /hpf Urine Hyaline Casts Few 0 - 2 /lpf Urine Glucose Normal Normal mg/dL Urine Opiates Screen Pos NEGATIVE Urine Fentanyl Screen Neg NEGATIVE Urine Barbiturates Screen Neg NEGATIVE Urine Phencyclidine Screen Neg NEGATIVE Urine Amphetamines Screen Neg NEGATIVE Urine Benzodiazepines Screen Neg NEGATIVE Urine Cocaine Screen Neg NEGATIVE Urine Cannabinoids Screen Neg NEGATIVE POC Glucose 119 H 70-106 mg/dl Anisocytosis (manual) Slight Target Cells Few Stomatocytes Few Ammonia 53 H 11-32 umol/L Lipase 52 12-53 U/L Test 07/17/25 15:36 Range/Units Tear Drop Cells Activated Partial Thromboplast Time 26.2 24.5-34.5 SEC Lactic Acid Level 1.6 0.4-2.0 mmol/L Magnesium Level 2.3 1.6-2.6 mg/dL Thyroid Stimulating Hormone (TSH) 0.78 0.55-4.78 uIU/mL Hepatitis A IgM Antibody Negative Hepatitis B Surface Antigen Negative Negative Hepatitis B Core IgM Antibody Negative Negative Hepatitis C Antibody Negative Negative Assessment Alcoholic hepatitis Hepatomegaly NICOLASA, likely hemodynamically mediated/VMN, improving Hyperammonemia Alcohol use disorder Nicotine dependence Plan: - right upper quadrant ultrasound - advanced to full liquid diet - continue conservative management; currently not a candidate for IV steroids - downtrending LFTs - continue lactulose to target 2-3 BMs - counseled patient extensively on the importance of alcohol cessation for his health and well-being, patient demonstrated understanding. Thank you so much for the opportunity to consult on your patient. GI team will follow the patient. In case of any questions or concerns please feel free to reach out. Plan discussed with Dr. Herndon Plan discussed with: Patient, Other (RN) NICHOLAS WEBBER RESIDENT Jul 19, 2025 16:04
[2025-07-19 16:16] LABS: Total Cells Counted 100.0 (100)
[2025-07-19 16:17] LABS: Stomatocytes Few
--- NOTE | 2025-07-19 17:15 | DVH ---
CLINICAL HISTORY: eval RUQ, CBD TECHNIQUE: Complete ultrasound exam of the abdomen was performed. COMPARISON: None FINDINGS: The liver is increased in echogenicity with no focal parenchymal abnormality. The liver measures 21. 7 cm in length. The common duct is 6.1 mm. Gallbladder is normal without shadowing stone or tenderness. The pancreas is within normal limits. No ascites or fluid collection. The right kidney is 11.4 cm and the left kidney is 12.0 cm. No hydronephrosis, increased echogenicit y, shadowing stone, or focal lesion. Spleen is within normal limits. The aorta and IVC are normal caliber and patent. IMPRESSION: Borderline dilated 6.1 mm common duct. Please correlate with laboratory values and consider MRCP if w arranted. Hepatomegaly with diffuse hepatic steatosis.
[2025-07-20] VITALS (9 sets, daily range): BP systolic 142–167; BP diastolic 86–110; PULSE 73–81; RESP 14–19; TEMP 98–98.9; O2SAT 96–100
--- NOTE | 2025-07-20 10:31 | DVHPN2 ---
Progress Note Date Seen: Jul 20, 2025 Resident Creating Document: NICHOLAS WEBBER RESIDENT Medical Necessity Reason Pt with a Central, PICC or Fol: No Subjective Review of Systems Patient seen and examined at bedside Notes feeling better than yesterday Denies any nausea or vomiting Tolerating diet Objective vital signs Vital Sign Date Time Temp Pulse Resp B/P (MAP) Pulse Ox O2 Delivery O2 Flow Rate FiO2 07/20/25 09:13 78 167/97 07/20/25 08:30 98.1 19 100 98.1 07/20/25 08:24 Room Air* 0 21 Total Intake and Output 07/19/25 07/19/25 07/20/25 15:00 23:00 07:00 Intake Total 1050 ml 380 ml 800 ml Balance 1050 ml 380 ml 800 ml medications Current Medications Medications Dose Ordered Sig/Martha Route Start Time Stop Time Status Last Admin Dose Admin Sodium Chloride 1,000 ml @ 60 mls/hr [id number] IV 07/17/25 19:30 07/19/25 10:18 60 MLS/HR Acetaminophen/ Hydrocodone Bitart 1 tab Q4HP PRN PO 07/17/25 19:30 07/20/25 09:13 1 TAB Ondansetron HCl 4 mg Q4HP PRN IV 07/17/25 19:30 Acetaminophen 650 mg Q6HP PRN PO 07/17/25 19:30 Morphine Sulfate 2 mg Q4HPRN PRN IV 07/17/25 19:30 Nitroglycerin 0.4 mg Q5MINP PRN SL 07/17/25 19:30 Morphine Sulfate 2 mg Q30M PRN IV 07/17/25 19:30 Ceftriaxone Sodium 50 ml @ 100 mls/hr DAILY IV 07/18/25 10:00 07/20/25 09:11 100 MLS/HR Lactulose 30 ml DAILY PO 07/18/25 10:00 07/20/25 09:11 30 ML Temazepam 15 mg HSPRN PRN PO 07/18/25 18:30 07/19/25 22:21 15 MG Metoprolol Tartrate 50 mg BID PO 07/19/25 10:00 07/20/25 09:13 50 MG Amlodipine Besylate 5 mg DAILY PO 07/20/25 10:00 07/20/25 09:12 5 MG Examination General Appearance: Jaundiced Well developed. Well nourished. NAD Pulmonary/Respiratory: Equal bilateral air entry Cardiovascular/Chest: Regular rate and rhythm. No murmurs. No JVD. Abdominal Exam: Normal bowel sounds. Soft but distended. normal abdomen, no visible veins, Nontender. No hepatospenomegaly. No masses Ankle Exam: Negative ankle edema Neuro/Mental Status: A&O x4. Coherent. Thoughts/Psych: Normal thought pattern. Appropriate mood and affect. Good judgement and insight Skin Exam: Normal inspection. Normal color. Warm. Dry laboratory and microbiology Laboratory Tests 07/19/25 15:30 Test 07/19/25 15:30 Range/Units Serum Glucose 95 74-106 mg/dL Labs and/or images reviewed: Labs reviewed by me, Image(s) reviewed by me Problem List/Assessment/Plan Problem List/Assessment/Plan Alcoholic hepatitis, choledocholithiasis can not be ruled out Hepatomegaly NICOLASA, likely hemodynamically mediated/VMN, improving Hyperammonemia Alcohol use disorder Nicotine dependence Plan: - consider outpatient versus inpatient referral to higher level of care for ERCP - MRCP: Punctate filling defect versus artifact measuring 0.4 cm in the common bile duct, no cholelithiasis. Hepatomegaly - right upper quadrant ultrasound: Borderline dilated 6.1 mm common bile duct. - advanced to full liquid diet - continue conservative management; currently not a candidate for IV steroids - downtrending LFTs - continue lactulose to target 2-3 BMs - counseled patient extensively on the importance of alcohol cessation for his health and well-being, patient demonstrated understanding. Thank you so much for the opportunity to consult on your patient. GI team will follow the patient. In case of any questions or concerns please feel free to reach out. Plan discussed with Dr. Herndon Plan discussed with: Patient, Other (RN) My Orders My Orders Orders - NICHOLAS WEBBER RESIDENT Procedure Category Date Status Time Full Liq Diet DIET 07/19/25 Transmitted Dinner Abdomen Complete US 07/19/25 Resulted Sonogram 15:54 Complete Blood Count LAB 07/20/25 Transmitted 10:30 Comprehensive LAB 07/20/25 Transmitted Metabolic Panel 10:30 Ammonia LAB 07/20/25 Transmitted 10:30 NICHOLAS WEBBER RESIDENT Jul 20, 2025 10:31
[2025-07-20 11:39] LABS: Hematocrit 32.5 % (41.0-53.0); Hemoglobin 11.1 g/dL (13.5-17.5); Mean Corpuscular Hemoglobin 32.2 pg (28.0-32.0); Mean Corpuscular Volume 93.8 fL (80.0-100.0)
--- NOTE | 2025-07-20 11:39 | DVHPN2 ---
Subjective The patient seen and examined at bedside. Still complain of tired and jaundice. Reviewed: Care Plan, H&P, Labs, Medications, Previous Orders Changes from previous H/P or p: No Changes Objective Vitals Vital Signs Date Time Temp Pulse Resp B/P (MAP) Pulse Ox O2 Delivery O2 Flow Rate FiO2 07/20/25 09:13 78 167/97 07/20/25 08:30 98.1 19 100 98.1 07/20/25 08:24 Room Air* 0 21 Intake/Output Intake and Output 07/20/25 07:00 Intake Total 2230 ml Balance 2230 ml Intake Oral 1180 ml IV Total 1050 ml # Voids 3 # Bowel Movements 1 General Appearance: Alert, Oriented X3, Cooperative, No acute distress HEENT: Atraumatic, PERRLA, EOMI, Mucous membr. moist/pink, Other (Positive for scale icterus) Neck: Supple Lungs: Clear to auscultation, Normal air movement Cardiovascular: Regular rate, Normal S1, Normal S2, No murmurs, Gallops, Rubs Abdomen: Normal bowel sounds, Soft, No tenderness Neuro: Cranial nerves 3-12 NL Psych/Mental Status: Mental status NL Medications Current Medications Medications Dose Ordered Sig/Martha Route Start Time Stop Time Status Last Admin Dose Admin Sodium Chloride 1,000 ml @ 60 mls/hr [id number] IV 07/17/25 19:30 07/19/25 10:18 60 MLS/HR Acetaminophen/ Hydrocodone Bitart 1 tab Q4HP PRN PO 07/17/25 19:30 07/20/25 09:13 1 TAB Ondansetron HCl 4 mg Q4HP PRN IV 07/17/25 19:30 Acetaminophen 650 mg Q6HP PRN PO 07/17/25 19:30 Morphine Sulfate 2 mg Q4HPRN PRN IV 07/17/25 19:30 Nitroglycerin 0.4 mg Q5MINP PRN SL 07/17/25 19:30 Morphine Sulfate 2 mg Q30M PRN IV 07/17/25 19:30 Ceftriaxone Sodium 50 ml @ 100 mls/hr DAILY IV 07/18/25 10:00 07/20/25 09:11 100 MLS/HR Lactulose 30 ml DAILY PO 07/18/25 10:00 07/20/25 09:11 30 ML Temazepam 15 mg HSPRN PRN PO 07/18/25 18:30 07/19/25 22:21 15 MG Metoprolol Tartrate 50 mg BID PO 07/19/25 10:00 07/20/25 09:13 50 MG Amlodipine Besylate 5 mg DAILY PO 07/20/25 10:00 07/20/25 09:12 5 MG Laboratory Results Chemistry Test 07/19/25 15:30 07/20/25 11:08 Albumin 3.5 g/dL (3.2-4.8) Pending Calcium Level 9.5 mg/dL (8.7-10.4) Pending Total Protein 6.4 g/dL (5.7-8.2) Pending Coagulation Test 07/19/25 15: Prothrombin Time 9.7 sec (9.3-11.8) Prothrombin Time INR 0.91 (0.9-1.15) LFT Test 07/19/25 15:30 07/20/25 11:08 Alanine Aminotransferase (ALT) 73 U/L (7-40) H Pending Alkaline Phosphatase 658 U/L (46-116) H Pending Aspartate Amino Transferase (AST) 89 U/L (13-40) H Pending Total Bilirubin 11.2 mg/dL (0.2-1.0) H Pending Urinalysis Test 07/19/25 11:00 Urine Color Dark-yellow (Yellow) Urine Clarity Clear (Clear) Urine pH 5.5 (5.0-9.0) Urine Specific [place] 1.014 (1.001-1.035) Urine Protein Negative (Negative) Urine Ketones Negative (Negative) Urine Blood Negative /uL (Negative) Urine Nitrite Negative (Negative) Urine Bilirubin 2+ (Negative) Urine Urobilinogen Normal mg/dL (Negative) Urine Leukocyte Esterase Negative /uL (Negative) Urine RBC 1 /hpf (0 - 3) Urine Microscopic WBC 3 /HPF (0-3) Urine Squamous Epithelial Cells Few /hpf (<5) Urine Bacteria None seen /hpf (None Seen) Urine Hyaline Casts Few /lpf (0 - 2) Urine Glucose Normal mg/dL (Normal) Assessment/Plan Assessment/Plan Assessment/Plan # Acute jaundice with abdominal symptoms # possible alcoholic liver disease # transaminitis # rule out hepatitis # hyperbilirubinemia - Bilirubin level 14.5 - Order comprehensive metabolic panel, including liver function tests - Order abdominal ultrasound to evaluate liver and biliary system - Advise complete alcohol cessation - Recommend smoking cessation - Schedule follow-up appointment to review test results and determine further management # NICOLASA likely due to VMN - IV fluid - monitor kidney function - monitor BMP - avoid nephrotoxic agents # hyponatremia - sodium level is 130 - follow up BMP # Hypertension - Continue current antihypertensive medication - Advise patient to bring medication to next appointment for review - Monitor blood pressure at follow-up visits # Hypercholesterolemia - Order lipid panel - Review current cholesterol-lowering medication regimen at follow-up # Left-sided inguinal hernia without obstruction - Consider referral to general surgery for evaluation and potential repair # Back growth likely lipoma - Follow up on general surgery # Alcohol use disorder - patient is to drink alcohol every day - counseled to quit alcohol drinking # current smoker - patient smokes 7-10 cigarettes per day - counseled to quit smoking for more than 15 minutes Continuing current management. Appreciate GI input. Review MRCP results: Punctate filling defect versus artifact measuring 0.4 cm in the common bile duct. No cholelithiasis.Hepatomegaly. We will discuss with GI specialist. Liver function tests trending down. Discharge planning. This medical document was created using an electronic medical record system with [employer] direct computerized dictation system. Although this document has been carefully reviewed, there may still be some phonetic and typographical errors. These areas are purely typographical due to imperfections of the software programs, and do not reflect any compromise in the patient's medical care. Plan discussed with: Patient My Orders Orders - JOAQUIN PEREZ MD Procedure Category Date Status Time Mrcp Mri MRI 07/19/25 Resulted 12:17 Amlodipine Tablet PHA 07/20/25 In Process (Norvasc Tablet) 10:00 * [facility] CONS 07/19/25 Transmitted 15:05 Date of Service: Jul 20, 2025 Billing Provider: JOAQUIN PEREZ MD Common Visit Codes: [id number] INP/OBS CARE(HIGH) JOAQUIN PEREZ MD Jul 20, 2025 11:39
[2025-07-20 11:53] LABS: Anion Gap 12 (5-15); BUN/Creatinine Ratio 9.6 (10.0-20.0); Blood Urea Nitrogen 9 mg/dL (9-23); Calcium 9.8 mg/dL (8.7-10.4); Carbon Dioxide 23 mmol/L (20-31); Potassium 4.0 mmol/L (3.5-5.1); Total Protein 6.9 g/dL (5.7-8.2)
[2025-07-20 11:54] LABS: Albumin 3.7 g/dL (3.2-4.8)
[2025-07-20 11:58] LABS: Alanine Aminotransferase 62 U/L (7-40); Alkaline Phosphatase 566 U/L (46-116); Bilirubin, Total 8.9 mg/dL (0.2-1.0); Chloride 97 mmol/L (98-107); Glucose 112 mg/dL (74-106); Sodium 132 mmol/L (136-145)
[2025-07-20] MEDS: LOSARTAN POTASSIUM 50 MG TAB PO ONE (12:10)
[2025-07-20] MEDS: hydroCHLOROthiazide 25 MG TAB PO ONE (12:10)
[2025-07-20 12:25] LABS: Total Cells Counted 100.0 (100)
[2025-07-20] MEDS: ONDANSETRON HCL 4 MG/2 ML VIAL IV PRN (20:31)
[2025-07-21] VITALS (8 sets, daily range): BP systolic 127–149; BP diastolic 89–97; PULSE 71–81; RESP 16–20; TEMP 97.9–98.2; O2SAT 96–100
[2025-07-21] MEDS: hydroCHLOROthiazide 25 MG TAB PO SCH (08:51)
[2025-07-21] MEDS: LOSARTAN POTASSIUM 50 MG TAB PO SCH (08:53)
[2025-07-21] MEDS: MORPHINE SULFATE 4 MG/ML SYR/VIAL IV PRN (09:00)
--- NOTE | 2025-07-21 13:23 | DVHPN2 ---
Reviewed: Care Plan, H&P, Labs, Medications, Previous Orders Changes from previous H/P or p: No Changes General: Per HPI Objective Vitals Vital Signs Date Time Temp Pulse Resp B/P (MAP) Pulse Ox O2 Delivery O2 Flow Rate FiO2 07/21/25 09:00 79 19 138/97 07/21/25 08:30 97.9 98 97.9 07/20/25 20:00 Room Air* 0 21 Intake/Output Intake and Output 07/21/25 07:00 Intake Total 1790 ml Balance 1790 ml Intake Oral 1790 ml # Voids 4 General Appearance: Alert, Oriented X3, Cooperative, No acute distress HEENT: Atraumatic, PERRLA, EOMI, Mucous membr. moist/pink, Other (Positive for scale icterus) Neck: Supple Lungs: Clear to auscultation, Normal air movement Cardiovascular: Regular rate, Normal S1, Normal S2, No murmurs, Gallops, Rubs Abdomen: Normal bowel sounds, Soft, No tenderness Neuro: Cranial nerves 3-12 NL Psych/Mental Status: Mental status NL Medications Current Medications Medications Dose Ordered Sig/Martha Route Start Time Stop Time Status Last Admin Dose Admin Sodium Chloride 1,000 ml @ 60 mls/hr [id number] IV 07/17/25 19:30 07/19/25 10:18 60 MLS/HR Acetaminophen/ Hydrocodone Bitart 1 tab Q4HP PRN PO 07/17/25 19:30 07/20/25 20:30 1 TAB Ondansetron HCl 4 mg Q4HP PRN IV 07/17/25 19:30 07/20/25 21:16 4 MG Acetaminophen 650 mg Q6HP PRN PO 07/17/25 19:30 Nitroglycerin 0.4 mg Q5MINP PRN SL 07/17/25 19:30 Morphine Sulfate 2 mg Q30M PRN IV 07/17/25 19:30 Ceftriaxone Sodium 50 ml @ 100 mls/hr DAILY IV 07/18/25 10:00 07/21/25 08:49 100 MLS/HR Lactulose 30 ml DAILY PO 07/18/25 10:00 07/21/25 08:53 30 ML Temazepam 15 mg HSPRN PRN PO 07/18/25 18:30 07/20/25 21:36 15 MG Metoprolol Tartrate 50 mg BID PO 07/19/25 10:00 07/21/25 08:52 50 MG Amlodipine Besylate 5 mg DAILY PO 07/20/25 10:00 07/21/25 08:52 5 MG Losartan Potassium 100 mg DAILY PO 07/21/25 10:00 07/21/25 08:53 100 MG Hydrochlorothiazide 25 mg DAILY PO 07/21/25 10:00 07/21/25 08:51 25 MG Morphine Sulfate 2 mg Q4HPRN PRN IV 07/21/25 09:00 07/21/25 09:00 2 MG Laboratory Results Laboratory Tests 07/20/25 11:08 Urinalysis Test 07/19/25 11:00 Urine Color Dark-yellow (Yellow) Urine Clarity Clear (Clear) Urine pH 5.5 (5.0-9.0) Urine Specific [place] 1.014 (1.001-1.035) Urine Protein Negative (Negative) Urine Ketones Negative (Negative) Urine Blood Negative /uL (Negative) Urine Nitrite Negative (Negative) Urine Bilirubin 2+ (Negative) Urine Urobilinogen Normal mg/dL (Negative) Urine Leukocyte Esterase Negative /uL (Negative) Urine RBC 1 /hpf (0 - 3) Urine Microscopic WBC 3 /HPF (0-3) Urine Squamous Epithelial Cells Few /hpf (<5) Urine Bacteria None seen /hpf (None Seen) Urine Hyaline Casts Few /lpf (0 - 2) Urine Glucose Normal mg/dL (Normal) Assessment/Plan Assessment/Plan Assessment/Plan # Acute jaundice with abdominal symptoms # possible alcoholic liver disease # transaminitis # rule out hepatitis # hyperbilirubinemia - Bilirubin level 14.5 - Order comprehensive metabolic panel, including liver function tests - Order abdominal ultrasound to evaluate liver and biliary system - Advise complete alcohol cessation - Recommend smoking cessation - Schedule follow-up appointment to review test results and determine further management # NICOLASA likely due to VMN - IV fluid - monitor kidney function - monitor BMP - avoid nephrotoxic agents # hyponatremia - sodium level is 130 - follow up BMP # Hypertension - Continue current antihypertensive medication - Advise patient to bring medication to next appointment for review - Monitor blood pressure at follow-up visits # Hypercholesterolemia - Order lipid panel - Review current cholesterol-lowering medication regimen at follow-up # Left-sided inguinal hernia without obstruction - Consider referral to general surgery for evaluation and potential repair # Back growth likely lipoma - Follow up on general surgery # Alcohol use disorder - patient is to drink alcohol every day - counseled to quit alcohol drinking # current smoker - patient smokes 7-10 cigarettes per day - counseled to quit smoking for more than 15 minutes 07/21/2025: Continuing current management. Appreciate GI input. ERCP outpatient vs transfer depending on LFT trends Review MRCP results: Punctate filling defect versus artifact measuring 0.4 cm in the common bile duct. No cholelithiasis.Hepatomegaly. We will discuss with GI specialist. Liver function tests trending down. Discharge planning. Plan discussed with: Patient Date of Service: Jul 21, 2025 Billing Provider: TRICIA OCONNELL DO Common Visit Codes: [id number] INP/OBS CARE(HIGH) TRICIA OCONNELL DO Jul 21, 2025 13:23
[2025-07-21] MEDS ORDERED: MET50T PO (14:13)
[2025-07-21] MEDS ORDERED: AML5T PO (14:13)
--- NOTE | 2025-07-21 16:34 | DVHPN2 ---
Progress Note Date Seen: Jul 21, 2025 Resident Creating Document: NICHOLAS WEBBER RESIDENT Medical Necessity Reason Pt with a Central, PICC or Fol: No Subjective Review of Systems Patient seen and examined at bedside Denies any nausea or vomiting Denies any abdominal pain Tolerating diet Objective vital signs Vital Sign Date Time Temp Pulse Resp B/P (MAP) Pulse Ox O2 Delivery O2 Flow Rate FiO2 07/21/25 16:25 98.1 71 19 138/96 (110) 97 98.1 07/21/25 08:25 Room Air* 0 21 Total Intake and Output 07/20/25 07/20/25 07/21/25 15:00 23:00 07:00 Intake Total 740 ml 1050 ml Balance 740 ml 1050 ml medications Current Medications Medications Dose Ordered Sig/Martha Route Start Time Stop Time Status Last Admin Dose Admin Sodium Chloride 1,000 ml @ 60 mls/hr [id number] IV 07/17/25 19:30 07/19/25 10:18 60 MLS/HR Acetaminophen/ Hydrocodone Bitart 1 tab Q4HP PRN PO 07/17/25 19:30 07/21/25 15:31 1 TAB Ondansetron HCl 4 mg Q4HP PRN IV 07/17/25 19:30 07/20/25 21:16 4 MG Acetaminophen 650 mg Q6HP PRN PO 07/17/25 19:30 Nitroglycerin 0.4 mg Q5MINP PRN SL 07/17/25 19:30 Morphine Sulfate 2 mg Q30M PRN IV 07/17/25 19:30 Ceftriaxone Sodium 50 ml @ 100 mls/hr DAILY IV 07/18/25 10:00 07/21/25 08:49 100 MLS/HR Lactulose 30 ml DAILY PO 07/18/25 10:00 07/21/25 08:53 30 ML Temazepam 15 mg HSPRN PRN PO 07/18/25 18:30 07/20/25 21:36 15 MG Metoprolol Tartrate 50 mg BID PO 07/19/25 10:00 07/21/25 08:52 50 MG Amlodipine Besylate 5 mg DAILY PO 07/20/25 10:00 07/21/25 08:52 5 MG Losartan Potassium 100 mg DAILY PO 07/21/25 10:00 07/21/25 08:53 100 MG Hydrochlorothiazide 25 mg DAILY PO 07/21/25 10:00 07/21/25 08:51 25 MG Morphine Sulfate 2 mg Q4HPRN PRN IV 07/21/25 09:00 07/21/25 09:00 2 MG Examination General Appearance: Jaundiced Well developed. Well nourished. NAD Pulmonary/Respiratory: Equal bilateral air entry Cardiovascular/Chest: Regular rate and rhythm. No murmurs. No JVD. Abdominal Exam: Normal bowel sounds. Soft but distended. normal abdomen, no visible veins, Nontender. No hepatospenomegaly. No masses Ankle Exam: Negative ankle edema Neuro/Mental Status: A&O x4. Coherent. Thoughts/Psych: Normal thought pattern. Appropriate mood and affect. Good judgement and insight Skin Exam: Normal inspection. Normal color. Warm. Dry laboratory and microbiology Laboratory Tests 07/20/25 11:08 Test 07/20/25 11:08 Range/Units Serum Glucose 112 H 74-106 mg/dL Labs and/or images reviewed: Labs reviewed by me, Image(s) reviewed by me Problem List/Assessment/Plan Problem List/Assessment/Plan Alcoholic hepatitis, choledocholithiasis can not be ruled out Hepatomegaly NICOLASA, likely hemodynamically mediated/VMN, improving Hyperammonemia Alcohol use disorder Nicotine dependence Plan: - consider outpatient versus inpatient referral to higher level of care for ERCP; if LFTs continued to downtrend tomorrow can consider discharge with strict instructions to follow up with GI in the outpatient to arrange for referral for ERCP at earliest possible. - MRCP: Punctate filling defect versus artifact measuring 0.4 cm in the common bile duct, no cholelithiasis. Hepatomegaly - right upper quadrant ultrasound: Borderline dilated 6.1 mm common bile duct. - advanced to full liquid diet - continue conservative management; currently not a candidate for IV steroids - downtrending LFTs - continue lactulose to target 2-3 BMs - counseled patient extensively on the importance of alcohol cessation for his health and well-being, patient demonstrated understanding. Thank you so much for the opportunity to consult on your patient. GI team will follow the patient. In case of any questions or concerns please feel free to reach out. Plan discussed with Dr. Herndon Plan discussed with: Patient, Other (RN) NICHOLAS WEBBER RESIDENT Jul 21, 2025 16:34
[2025-07-22 00:56] VITALS: BP 123/82; PULSE 68; RESP 19; TEMP 97.2; O2SAT 98
[2025-07-22 05:00] VITALS: BP 117/85; PULSE 70; RESP 19; TEMP 97.7; O2SAT 99
[2025-07-22 07:54] LABS: Hematocrit 32.5 % (41.0-53.0); Hemoglobin 10.9 g/dL (13.5-17.5); Mean Corpuscular Hemoglobin 31.8 pg (28.0-32.0); Mean Corpuscular Volume 94.4 fL (80.0-100.0)
[2025-07-22 08:11] LABS: Anion Gap 11 (5-15); BUN/Creatinine Ratio 9.6 (10.0-20.0); Calcium 10.0 mg/dL (8.7-10.4); Carbon Dioxide 24 mmol/L (20-31); Potassium 3.9 mmol/L (3.5-5.1); Total Protein 7.2 g/dL (5.7-8.2)
[2025-07-22 08:12] LABS: Albumin 3.9 g/dL (3.2-4.8); Alkaline Phosphatase 464 U/L (46-116); Blood Urea Nitrogen 9 mg/dL (9-23); Chloride 97 mmol/L (98-107); Glucose 108 mg/dL (74-106); Sodium 132 mmol/L (136-145)
[2025-07-22 08:13] LABS: Alanine Aminotransferase 47 U/L (7-40); Bilirubin, Total 5.8 mg/dL (0.2-1.0)
[2025-07-22 08:48] LABS: Total Cells Counted 100.0 (100)
[2025-07-22 08:49] LABS: Anisocytosis Slight
[2025-07-22 09:00] VITALS: BP 130/98; PULSE 70; RESP 18; TEMP 98.6; O2SAT 96
--- NOTE | 2025-07-22 09:54 | DVHPN2 ---
Progress Note Date Seen: Jul 22, 2025 Resident Creating Document: NICHOLAS WEBBER RESIDENT Medical Necessity Reason Pt with a Central, PICC or Fol: No Subjective Review of Systems Patient seen and examined at bedside Reports feeling great Denies any nausea or vomiting Denies any abdominal pain Last bowel movement yesterday on 07/21/2025, normal in consistency and color LFTs downtrending appropriately Objective vital signs Vital Sign Date Time Temp Pulse Resp B/P (MAP) Pulse Ox O2 Delivery O2 Flow Rate FiO2 07/22/25 09:00 98.6 70 18 130/98 (109) 96 98.6 07/21/25 20:00 Room Air* 0 21 Total Intake and Output 07/21/25 07/21/25 07/22/25 15:00 23:00 07:00 Intake Total 50 ml 1400 ml 600 ml Balance 50 ml 1400 ml 600 ml medications Current Medications Medications Dose Ordered Sig/Martha Route Start Time Stop Time Status Last Admin Dose Admin Sodium Chloride 1,000 ml @ 60 mls/hr [id number] IV 07/17/25 19:30 07/19/25 10:18 60 MLS/HR Acetaminophen/ Hydrocodone Bitart 1 tab Q4HP PRN PO 07/17/25 19:30 07/22/25 06:25 1 TAB Ondansetron HCl 4 mg Q4HP PRN IV 07/17/25 19:30 07/20/25 21:16 4 MG Acetaminophen 650 mg Q6HP PRN PO 07/17/25 19:30 Nitroglycerin 0.4 mg Q5MINP PRN SL 07/17/25 19:30 Morphine Sulfate 2 mg Q30M PRN IV 07/17/25 19:30 Ceftriaxone Sodium 50 ml @ 100 mls/hr DAILY IV 07/18/25 10:00 07/21/25 08:49 100 MLS/HR Lactulose 30 ml DAILY PO 07/18/25 10:00 07/21/25 08:53 30 ML Temazepam 15 mg HSPRN PRN PO 07/18/25 18:30 07/21/25 21:58 15 MG Metoprolol Tartrate 50 mg BID PO 07/19/25 10:00 07/21/25 21:59 50 MG Amlodipine Besylate 5 mg DAILY PO 07/20/25 10:00 07/21/25 08:52 5 MG Losartan Potassium 100 mg DAILY PO 07/21/25 10:00 07/21/25 08:53 100 MG Hydrochlorothiazide 25 mg DAILY PO 07/21/25 10:00 07/21/25 08:51 25 MG Morphine Sulfate 2 mg Q4HPRN PRN IV 07/21/25 09:00 07/21/25 09:00 2 MG Examination General Appearance: Jaundiced Well developed. Well nourished. NAD Pulmonary/Respiratory: Equal bilateral air entry Cardiovascular/Chest: Regular rate and rhythm. No murmurs. No JVD. Abdominal Exam: Normal bowel sounds. Soft but distended. normal abdomen, no visible veins, Nontender. No hepatospenomegaly. No masses Ankle Exam: Negative ankle edema Neuro/Mental Status: A&O x4. Coherent. Thoughts/Psych: Normal thought pattern. Appropriate mood and affect. Good judgement and insight Skin Exam: Normal inspection. Normal color. Warm. Dry laboratory and microbiology Laboratory Tests 07/22/25 07:00 Test 07/22/25 07:00 Range/Units Serum Glucose 108 H 74-106 mg/dL Labs and/or images reviewed: Labs reviewed by me, Image(s) reviewed by me Problem List/Assessment/Plan Problem List/Assessment/Plan Alcoholic hepatitis, choledocholithiasis can not be ruled out Hepatomegaly NICOLASA, likely hemodynamically mediated/VMN, improving Hyperammonemia Alcohol use disorder Nicotine dependence Plan: - consider outpatient versus inpatient referral to higher level of care for ERCP; LFTs have continued to downtrend appropriately, can consider discharge with strict instructions to follow up with GI in the outpatient to arrange for referral for ERCP at earliest possible. - MRCP: Punctate filling defect versus artifact measuring 0.4 cm in the common bile duct, no cholelithiasis. Hepatomegaly - right upper quadrant ultrasound: Borderline dilated 6.1 mm common bile duct. - advanced to full liquid diet - continue conservative management; currently not a candidate for IV steroids - downtrending LFTs - continue lactulose to target 2-3 BMs - counseled patient extensively on the importance of alcohol cessation for his health and well-being, patient demonstrated understanding. Thank you so much for the opportunity to consult on your patient. GI team will follow the patient. In case of any questions or concerns please feel free to reach out. Plan discussed with Dr. Herndon Plan discussed with: Patient, Other (RN) NICHOLAS WEBBER RESIDENT Jul 22, 2025 09:54
[2025-07-22 12:41] VITALS: BP 117/89; PULSE 75; RESP 18; TEMP 98.5; O2SAT 94
--- NOTE | 2025-07-22 14:38 | DVHDS2 ---
Discharge Summary Date of Admission Jul 17, 2025 at 19:22 Date of Discharge: Jul 22, 2025 Labs/Diagnostic Data: Laboratory Results Test 07/22/25 07:00 07/20/25 11:55 07/19/25 15:30 07/19/25 11:00 White Blood Count 13.3 10^3/uL (4.4-10.8) Red Blood Count 3.44 10^6/uL (4.5-5.90) Hemoglobin 10.9 g/dL (13.5-17.5) Hematocrit 32.5 % (41.0-53.0) Mean Corpuscular Volume 94.4 fL (80.0-100.0) Mean Corpuscular Hemoglobin 31.8 pg (28.0-32.0) Mean Corpuscular Hemoglobin Concent 33.6 g/dL (32.0-36.0) Red Cell Distribution Width 18.3 % (11.8-14.3) Platelet Count 561 10^3/uL (140-450) Mean Platelet Volume 8.1 fL (6.9-10.8) Neutrophils (%) (Auto) % (37.0-80.0) Lymphocytes (%) (Auto) % (10.0-50.0) Monocytes (%) (Auto) % (0.0-12.0) Basophils (%) (Auto) % (0.0-2.0) Neutrophils # (Auto) 10 ^3/uL (1.6-8.6) Lymphocytes # (Auto) 10 ^3/uL (0.4-5.4) Monocytes # (Auto) 10 ^3/uL (0-1.3) Differential Total Cells Counted 100.0 (100) Neutrophils % (Manual) 45 (37.0-80.0) Band Neutrophils % (Manual) 4 Lymphocytes % (Manual) 28 (10.0-50.0) Monocytes % (Manual) 14 (0-12) Eosinophils % (Manual) 5 (0-7) Basophils % (Manual) 0 (0.0-2.0) Metamyelocytes % (manual) 1 Myelocytes % (Manual) 0 Promyelocytes % (Manual) 0 Blast Cells % (Manual) 0 Reactive Lymphocytes 3 Platelet Estimate Increased Anisocytosis (manual) Slight Sodium Level 132 mmol/L (136-145) Potassium Level 3.9 mmol/L (3.5-5.1) Chloride Level 97 mmol/L (98-107) Carbon Dioxide Level 24 mmol/L (20-31) Anion Gap 11 (5-15) Blood Urea Nitrogen 9 mg/dL (9-23) Creatinine 0.94 mg/dL (0.700-1.30) Glomerular Filtration Rate Calc 106 mL/min (>90) BUN/Creatinine Ratio 9.6 (10.0-20.0) Serum Glucose 108 mg/dL (74-106) Calcium Level 10.0 mg/dL (8.7-10.4) Total Bilirubin 5.8 mg/dL (0.2-1.0) Aspartate Amino Transferase (AST) 55 U/L (13-40) Alanine Aminotransferase (ALT) 47 U/L (7-40) Alkaline Phosphatase 464 U/L (46-116) Total Protein 7.2 g/dL (5.7-8.2) Albumin 3.9 g/dL (3.2-4.8) Ammonia < 10 umol/L (11-32) Large Platelets Few Stomatocytes Few Prothrombin Time 9.7 sec (9.3-11.8) Prothrombin Time INR 0.91 (0.9-1.15) Urine Color Dark-yellow (Yellow) Urine Clarity Clear (Clear) Urine pH 5.5 (5.0-9.0) Urine Specific [place] 1.014 (1.001-1.035) Urine Protein Negative (Negative) Urine Ketones Negative (Negative) Urine Blood Negative /uL (Negative) Urine Nitrite Negative (Negative) Urine Bilirubin 2+ (Negative) Urine Urobilinogen Normal mg/dL (Negative) Urine Leukocyte Esterase Negative /uL (Negative) Urine RBC 1 /hpf (0 - 3) Urine Microscopic WBC 3 /HPF (0-3) Urine Squamous Epithelial Cells Few /hpf (<5) Urine Bacteria None seen /hpf (None Seen) Urine Hyaline Casts Few /lpf (0 - 2) Urine Glucose Normal mg/dL (Normal) Urine Opiates Screen Pos (NEGATIVE) Urine Fentanyl Screen Neg (NEGATIVE) Urine Barbiturates Screen Neg (NEGATIVE) Urine Phencyclidine Screen Neg (NEGATIVE) Urine Amphetamines Screen Neg (NEGATIVE) Urine Benzodiazepines Screen Neg (NEGATIVE) Urine Cocaine Screen Neg (NEGATIVE) Urine Cannabinoids Screen Neg (NEGATIVE) Test 07/18/25 11:18 07/18/25 05:31 07/17/25 15:36 POC Glucose 119 mg/dl (70-106) Target Cells Few Lipase 52 U/L (12-53) Tear Drop Cells Activated Partial Thromboplast Time 26.2 SEC (24.5-34.5) Lactic Acid Level 1.6 mmol/L (0.4-2.0) Magnesium Level 2.3 mg/dL (1.6-2.6) Thyroid Stimulating Hormone (TSH) 0.78 uIU/mL (0.55-4.78) Hepatitis A IgM Antibody Negative Hepatitis B Surface Antigen Negative (Negative) Hepatitis B Core IgM Antibody Negative (Negative) Hepatitis C Antibody Negative (Negative) Other Laboratory Tests 07/22/25 07:00 Brief Hx & Hospital Course: # Acute jaundice with abdominal symptoms # possible alcoholic liver disease # transaminitis # rule out hepatitis # hyperbilirubinemia - Bilirubin level 14.5 - Order comprehensive metabolic panel, including liver function tests - Order abdominal ultrasound to evaluate liver and biliary system - Advise complete alcohol cessation - Recommend smoking cessation - Schedule follow-up appointment to review test results and determine further management # NICOLASA likely due to VMN - IV fluid - monitor kidney function - monitor BMP - avoid nephrotoxic agents # hyponatremia - sodium level is 130 - follow up BMP # Hypertension - Continue current antihypertensive medication - Advise patient to bring medication to next appointment for review - Monitor blood pressure at follow-up visits # Hypercholesterolemia - Order lipid panel - Review current cholesterol-lowering medication regimen at follow-up # Left-sided inguinal hernia without obstruction - Consider referral to general surgery for evaluation and potential repair # Back growth likely lipoma - Follow up on general surgery # Alcohol use disorder - patient is to drink alcohol every day - counseled to quit alcohol drinking # current smoker - patient smokes 7-10 cigarettes per day - counseled to quit smoking for more than 15 minutes 07/21/2025: Continuing current management. Appreciate GI input. ERCP outpatient vs transfer depending on LFT trends 07/22/2025: discharged to home and f/u outpatient ERCP Review MRCP results: Punctate filling defect versus artifact measuring 0.4 cm in the common bile duct. No cholelithiasis.Hepatomegaly. Condition at Discharge: Fair Final Diagnosis/Problems List see above Discharge Disposition: Home Discharge Instruct/Medications Diet: See Comment Activity: No Restrictions, As Tolerated Scheduled Amlodipine Besylate (Norvasc Tablet), 5 MG PO DAILY Amlodipine Besylate-Valsartan (Amlodipine Besylate/Valsa 5-160 mg), 1 TAB PO DAILY, (Reported) Atorvastatin Calcium (Atorvastatin Calcium), 125 MG PO DAILY, (Reported) Metoprolol Tartrate (Metoprolol Tartrate), 10 MG PO BID, (Reported) Metoprolol Tartrate (Lopressor Tablet), 50 MG PO BID Omeprazole (Omeprazole Dr), 1 CAP PO DAILY, (Reported) Scheduled PRN Tramadol Hcl (Tramadol Hcl), 1 TAB PO Q8HPRN PRN for PAIN SCALE 1 THRU 6, (Reported) Discontinued Medications Atorvastatin Calcium (Atorvastatin Calcium), 1 TAB PO, (Reported) Discharge Statement: "Patient was advised to return to the ER or call 911 if any headaches, dizziness, shortness of breath, chest pain, abdominal pain, bleeding, fevers, or worsening of medical condition. Patient was counseled about treatment plan, medications, possible side effects, patientverbalized understanding. All questions were answered to the best of my ability. This discharge took greater then 30 minutes in planning, reviewing documentation, counseling the patient, and discussing with other team members." ASSESSMENT ASSESSMENT Assessment TRICIA OCONNELL DO Jul 22, 2025 14:38
[2025-07-22 16:01] VITALS: BP 117/89; PULSE 75; RESP 18; TEMP 98.5; O2SAT 94
== END 2025-07-22 16:45 | disposition home or self-care (01) | DRG 280 ==
LOC: ER 12:46 → OVERFLOW 19:22 → WEST WING 22:36
PROVIDERS: ADMIT Internal Medicine; ATTEND Internal Medicine
DX: K70.10 Alcoholic hepatitis without ascites (principal); K70.9 Alcoholic liver disease, unspecified; N17.0 Acute kidney failure with tubular necrosis; E72.20 Disorder of urea cycle metabolism, unspecified; K40.90 Unilateral inguinal hernia, without obstruction or gangrene, not specified as recurrent; E80.6 Other disorders of bilirubin metabolism; I10 Essential (primary) hypertension; D17.9 Benign lipomatous neoplasm, unspecified; E87.1 Hypo-osmolality and hyponatremia; F10.10 Alcohol abuse, uncomplicated; E78.00 Pure hypercholesterolemia, unspecified; F17.210 Nicotine dependence, cigarettes, uncomplicated; R74.01 Elevation of levels of liver transaminase levels; Z82.49 Family history of ischemic heart disease and other diseases of the circulatory system; Z71.6 Tobacco abuse counseling; Z83.3 Family history of diabetes mellitus; Y90.9 Presence of alcohol in blood, level not specified
CPT/HCPCS: 36415; 74176; 74181; 76700; 80053; 80074; 80307; 81001; 82140; 82962; 83605; 83690; 83735; 84443; 85007; 85027; 85610; 85730; G0378; J2405